=== PATIENT | female | born 1960 | race Caucasian/White ===

== ENCOUNTER 2018-10-06 15:20 | Outpatient (CLI) | payer BC ==
--- NOTE | 2018-10-23 09:59 | MMO ---
Bilateral MAMMO Bilat Screen [facility]. CLINICAL HISTORY: Patient is 58 years old and is seen for screening. The patient has no family history of breast cancer. The patient has no personal history of cancer. VIEWS: The views performed were: bilateral craniocaudal with tomosynthesis and bilateral mediolateral oblique with tomosynthesis. FILMS COMPARED: The present examination has been compared to prior imaging studies performed at [facility] on 02/13/2007 and 01/17/2012. MAMMOGRAM FINDINGS: There are scattered fibroglandular densities. There are no suspicious masses, suspicious calcifications, or new areas of architectural distortion. IMPRESSION: THERE IS NO MAMMOGRAPHIC EVIDENCE OF MALIGNANCY. A ROUTINE FOLLOW-UP MAMMOGRAM IN 1 YEAR IS RECOMMENDED. THE RESULTS OF THIS EXAM WERE SENT TO THE PATIENT. ACR BI-RADS Category 1 - Negative MAMMOGRAPHY NOTE: 1. A negative mammogram report should not delay a biopsy if a dominant of clinically suspicious mass is present. 2. Approximately 10% to 15% of breast cancers are not detected by mammography. 3. Adenosis and dense breasts may obscure an underlying neoplasm.
== END 2018-10-06 15:21 | disposition home or self-care (01) ==
LOC: BICMAMMO 15:20
PROVIDERS: ATTEND Family Medicine
DX: Z12.31 Encounter for screening mammogram for malignant neoplasm of breast (principal)
CPT/HCPCS: 77063; 77067

== ENCOUNTER 2018-10-08 15:40 | Outpatient (CLI) | payer BC ==
--- NOTE | 2018-10-08 16:56 | MRI ---
MRI lumbar spine noncontrast: HISTORY: Right hip pain, right lower extremity weakness times one year. Low back pain. COMPARISON: None FINDINGS: Appropriate T1 marrow signal intensity lumbar vertebra. Lumbar spine vertebral body height is maintai bobbi. No fracture Type II Modic change at L4-L5 and L5-S1 Appropriate signal intensity and visualized solid organs. Incidental cyst in the left renal cortex. Appropriate signal intensity in the visualized paraspinal muscles Conus medullaris terminates at the T12-L1 disc space level T12-L1:No significant central canal stenosis or neural foraminal narrowing L1-2:No significant central canal stenosis or neural foraminal narrowing. L2-3:No significant central canal stenosis or right neural foraminal narrowing. 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 Postcontrast imaging is recommended to exclude a possible intrinsic lesion involving the exiting left elbow II ne rve root. L3-4:Adequate disc hydration. Broad-based disc bulge, ligament flavum thickening result in mild centr al canal stenosis. Neural foramina are patent. L4-5:No significant central canal stenosis. Moderate loss of disc space height. Mild bilateral forami nal narrowing L5-S1:Mild to moderate loss of disc space height. No significant central canal stenosis. Mild right a nd [id number] left foraminal narrowing. IMPRESSION: 1. Degenerative changes of the lumbar spine as described above. 2. T2 hyperintensity involving the exiting left L2 nerve root. 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 Postcontrast imaging is recommended to exclude a possible intrinsic lesion involving the nerve root. CODE T
== END 2018-10-08 15:41 | disposition home or self-care (01) ==
LOC: SCSMRI 15:40
PROVIDERS: ATTEND Pediatrics Sports Medicine
DX: M54.31 Sciatica, right side (principal); M54.32 Sciatica, left side; R29.898 Other symptoms and signs involving the musculoskeletal system; R32 Unspecified urinary incontinence; M47.816 Spondylosis without myelopathy or radiculopathy, lumbar region
CPT/HCPCS: 72148

== ENCOUNTER 2019-11-09 13:36 | Outpatient (CLI) | payer BC ==
--- NOTE | 2019-11-09 14:54 | MMO ---
Bilateral MAMMO Bilat Screen [facility]. CLINICAL HISTORY: Patient is 59 years old and is seen for screening. The patient has no family history of breast cancer. The patient has no personal history of cancer. VIEWS: The views performed were: bilateral craniocaudal with tomosynthesis and bilateral mediolateral oblique with tomosynthesis. FILMS COMPARED: The present examination has been compared to prior imaging studies performed at [facility] on 10/06/2018, and at [facility] on 02/13/2007 and 01/17/2012. This study has been interpreted with the assistance of computer-aided detection. MAMMOGRAM FINDINGS: There are scattered fibroglandular densities. There are no suspicious masses, suspicious calcifications, or new areas of architectural distortion. IMPRESSION: THERE IS NO MAMMOGRAPHIC EVIDENCE OF MALIGNANCY. A ROUTINE FOLLOW-UP MAMMOGRAM IN 1 YEAR IS RECOMMENDED. THE RESULTS OF THIS EXAM WERE SENT TO THE PATIENT. ACR BI-RADS Category 1 - Negative MAMMOGRAPHY NOTE: 1. A negative mammogram report should not delay a biopsy if a dominant of clinically suspicious mass is present. 2. Approximately 10% to 15% of breast cancers are not detected by mammography. 3. Adenosis and dense breasts may obscure an underlying neoplasm. Reported by: Alie MILLIGAN Electonically Signed: [id number]
== END 2019-11-09 13:37 | disposition home or self-care (01) ==
LOC: BICMAMMO 13:36
PROVIDERS: ATTEND Family Medicine
DX: Z12.31 Encounter for screening mammogram for malignant neoplasm of breast (principal)
CPT/HCPCS: 77063; 77067

== ENCOUNTER 2020-11-14 12:55 | Outpatient (CLI) | payer BC | END 2020-11-14 12:56 | disposition home or self-care (01) | LOC: BICMAMMO 12:55 | PROVIDERS: ATTEND Family Medicine | DX: Z12.31 Encounter for screening mammogram for malignant neoplasm of breast (principal) | CPT/HCPCS: 77063; 77067 ==

== ENCOUNTER 2021-11-20 11:50 | Outpatient (CLI) | payer BC | END 2021-11-20 11:51 | disposition home or self-care (01) | LOC: BICMAMMO 11:50 | PROVIDERS: ATTEND Family Medicine | DX: Z12.31 Encounter for screening mammogram for malignant neoplasm of breast (principal) | CPT/HCPCS: 77063; 77067 ==